=== PATIENT | female | born 1935 | race Caucasian/White ===

== ENCOUNTER 2019-11-24 18:12 | Inpatient (IN) | payer OTHER ==
[~2019-11-24] VITALS: Ht 152.4 cm; Wt 38.2 kg
[2019-11-24 20:04] LABS: BASOPHIL % 0.3 % (0-2)
[2019-11-24 20:05] LABS: PLATELET COUNT 620 x10^3mcL (130-400); RED CELL DISTRIBUTION WIDTH 17.7 % (11.5-14.5)
[2019-11-24 20:16] LABS: ALKALINE PHOSPHATASE 145 U/L (46-116); ALT/SGPT 9 U/L (14-59); AST/SGOT 30 U/L (15-37); BILIRUBIN TOTAL 0.29 mg/dL (0.20-1.00); CALCIUM 8.1 mg/dL (8.5-10.1); CARBON DIOXIDE 30.8 mmol/L (21-32); CHLORIDE SERUM 103 mmol/L (98-107); CREATININE SERUM 0.5 mg/dL (0.6-1.0); GLUCOSE SERUM 140 mg/dL (74-106); SODIUM SERUM 136 mmol/L (136-145); TOTAL PROTEIN, SERUM 6.6 g/dL (6.4-8.2)
[2019-11-24 20:18] LABS: POTASSIUM SERUM 2.9 mmol/L (3.5-5.1)
[2019-11-24] MEDS ORDERED: MORPHABOND ER15 MG PO (20:36)
[2019-11-24] MEDS ORDERED: MORPHINE SULFA100 M2 (20:39)
[2019-11-24] MEDS ORDERED: [UNRECOGNIZED DRUG - CODE] (20:40)
[2019-11-24] MEDS ORDERED: PAXIL40 M1 PO (20:41)
[2019-11-24 20:49] LABS: CHOLESTEROL/HDL RATIO 2.9
[2019-11-24 20:51] LABS: T3 TOTAL 0.99 ng/mL
[2019-11-24 20:54] LABS: FREE T4 1.39 ng/dL (0.76-1.46); FREE THYROXINE INDEX 4.7 ug/dL (1.4-4.5); T4(THYROXINE) 10.5 ug/dL (4.7-13.3)
[2019-11-24 22:16] VITALS: BP 105/63
[2019-11-24 22:26] VITALS: Ht 152.4 cm; Wt 38.2 kg
[2019-11-25 00:34] LABS: CARBON DIOXIDE 29.2 mmol/L (21-32); CHLORIDE SERUM 105 mmol/L (98-107); CREATININE SERUM 0.4 mg/dL (0.6-1.0); GLUCOSE SERUM 114 mg/dL (74-106); POTASSIUM SERUM 3.6 mmol/L (3.5-5.1); SODIUM SERUM 137 mmol/L (136-145)
[2019-11-25 04:28] VITALS: BP 135/82
[2019-11-25 06:32] LABS: BASOPHIL % 0.2 % (0-2)
[2019-11-25 06:47] LABS: PLATELET COUNT 597 x10^3mcL (130-400)
[2019-11-25 06:58] LABS: CALCIUM 7.7 mg/dL (8.5-10.1); CARBON DIOXIDE 27.5 mmol/L (21-32); CHLORIDE SERUM 105 mmol/L (98-107); CREATININE SERUM 0.4 mg/dL (0.6-1.0); GLUCOSE SERUM 123 mg/dL (74-106); POTASSIUM SERUM 3.2 mmol/L (3.5-5.1); SODIUM SERUM 140 mmol/L (136-145)
[2019-11-25 08:07] VITALS: BP 108/62
[2019-11-25 10:21] VITALS: BP 115/64
[2019-11-25 11:07] VITALS: BP 115/64
[2019-11-25 12:13] VITALS: BP 141/76
== END 2019-11-25 11:50 | disposition hospice, home (50) | DRG 393 ==
LOC: ED 18:12 → MU 20:14
PROVIDERS: Emergency Medicine; ADMIT Family Medicine
PROC: 0DH63UZ Insertion of Feeding Device into Stomach, Percutaneous Approach (ICD-10-PCS; principal; 2019-11-24)
DX: K94.23 Gastrostomy malfunction (principal); E43 Unspecified severe protein-calorie malnutrition; Z68.1 Body mass index [BMI] 19.9 or less, adult; F32.9 Major depressive disorder, single episode, unspecified; Z66 Do not resuscitate; E87.6 Hypokalemia; M81.0 Age-related osteoporosis without current pathological fracture; R13.10 Dysphagia, unspecified; F41.9 Anxiety disorder, unspecified; Z51.5 Encounter for palliative care; Y83.8 Other surgical procedures as the cause of abnormal reaction of the patient, or of later complication, without mention of misadventure at the time of the procedure; Z79.899 Other long term (current) drug therapy; Z90.49 Acquired absence of other specified parts of digestive tract; Z85.01 Personal history of malignant neoplasm of esophagus; Z87.891 Personal history of nicotine dependence; Z90.710 Acquired absence of both cervix and uterus
CPT/HCPCS: 43235; 84439; G0378; J1200; J1610; J2250; J2270; J2310; J3010; J3480; J3490; J7042; Q0092